=== PATIENT | female | born 1955 | race American Indian/Alaskan Native ===

== ENCOUNTER 2021-05-18 14:27 | Emergency (ER) | payer MEDICARE ==
[2021-05-18] MEDS ORDERED: dexAMETHasone 4 MG/ML VIAL IM STA (16:58)
--- NOTE | 2021-05-18 17:09 | Emergency Department Report ---
ED General Adult HPI - General Chief complaint: Extremity Injury, Lower Stated complaint: HIP PAIN SHOULDER PAIN Time Seen by Provider: 05/18/21 16:07 Source: patient Mode of arrival: Ambulatory Limitations: No Limitations - History of Present Illness Initial comments: 65-year-old -[place] female patient presents with complaints of right leg pain and right shoulder pain x3 to 4 days. Patient states history of recurrent right leg pain that occurs when her back is spasming. She denies any swelling to her leg, numbness/tingling/weakness in her leg, injuries, heavy lifting, loss of bladder/bowel control, or difficulty with ambulation. She rates her current pain is 8/10 in severity overall and states Tylenol is not helping. She reports that the right shoulder pain is chronic and denies any new or worsening symptoms. She states the pain has been ongoing since a job she had years ago where she did a lot of over head heavy lifting. No chest pain or shortness of breath per patient. She also denies any recent long travel, history of DVT/PE, or hormone use. No past medical history per patient. - Related Data Previous Rx's Medication Instructions Recorded Last Taken Type Naproxen [Naprosyn] 500 mg PO BID PRN #20 tablet 05/18/21 Unknown Rx methocarbamoL [Methocarbamol] 500 mg PO TID PRN #20 tablet 05/18/21 Unknown Rx Allergies Allergy/AdvReac Type Severity Reaction Status Date / Time aspirin Allergy Nausea Verified 05/18/21 14:32 ED Review of Systems ROS: Stated complaint: HIP PAIN SHOULDER PAIN Other details as noted in HPI Constitutional: denies: diaphoresis, fever, malaise, weakness Genitourinary: denies: urgency, dysuria, frequency, hematuria Musculoskeletal: back pain, arthralgia. denies: joint swelling Neurological: denies: numbness, paresthesias ED Past Medical Hx - Past Medical History Previous Medical History?: No - Surgical History Past Surgical History?: Yes Additional Surgical History: gastric bypass - Social History Smoking Status: Never Smoker Substance Use Type: None - Medications Home Medications: Home Medications Medication Instructions Recorded Confirmed Last Taken Type Naproxen [Naprosyn] 500 mg PO BID PRN #20 tablet 05/18/21 Unknown Rx methocarbamoL [Methocarbamol] 500 mg PO TID PRN #20 tablet 05/18/21 Unknown Rx ED Physical Exam - General Limitations: No Limitations General appearance: alert, in no apparent distress - Head Head exam: Present: atraumatic, normocephalic - Eye Eye exam: Present: normal appearance - Neck Neck exam: Present: normal inspection, full ROM - Respiratory Respiratory exam: Present: normal lung sounds bilaterally. Absent: respiratory distress - Cardiovascular Cardiovascular Exam: Present: regular rate - Expanded Upper Extremity Exam Right Shoulder Exam: Absent: full ROM (Abduction is somewhat limited), tenderness, swelling, deformity - Back Exam Back exam: Absent: other (No tenderness or swelling noted to the right lower extremity) - Expanded Back Exam Expanded Back exam: Absent: saddle anesthesia Back exam: Sciatic Notch Tenderness: Right, Positive Straight Leg Raise: Right - Neurological Exam Neurological exam: Present: alert, oriented X3. Absent: motor sensory deficit - Psychiatric Psychiatric exam: Present: normal affect, normal mood - Skin Skin exam: Present: warm, dry, intact, normal color. Absent: rash ED Medical Decision Making - Medical Decision Making 65-year-old -[place] female patient presents with complaints of right leg pain and right shoulder pain x3 to 4 days. Patient states history of recurrent right leg pain that occurs when her back is spasming. She denies any swelling to her leg, numbness/tingling/weakness in her leg, injuries, heavy lifting, loss of bladder/bowel control, or difficulty with ambulation. She rates her current pain is 8/10 in severity overall and states Tylenol is not helping. She reports that the right shoulder pain is chronic and denies any new or worsening symptoms. She states the pain has been ongoing since a job she had years ago where she did a lot of over head heavy lifting. No chest pain or shortness of breath per patient. She also denies any recent long travel, history of DVT/PE, or hormone use. No past medical history per patient. Back exam is consistent with sciatica. Will treat conservatively with NSAIDs, icing, and stretching. Recommend patient follows up with orthopedics concerning her recurrent back pain and chronic right shoulder pain for further evaluation. She is well-appearing, her vitals are normal, and she is stable for discharge home. Strict return precautions were discussed in detail with patient who verbalizes understanding. Critical care attestation.: If time is entered above; I have spent that time in minutes in the direct care of this critically ill patient, excluding procedure time. ED Disposition Clinical Impression: Low back pain with sciatica Qualifiers: Back pain laterality: right Sciatica laterality: sciatica of right side Disposition: HOME / SELF CARE / HOMELESS Is pt being admited?: No Condition: Stable Instructions: Sciatica, Shoulder Pain Prescriptions: methocarbamoL [Methocarbamol] 500 mg PO TID PRN #20 tablet PRN Reason: muscle spasm/tightness Naproxen [Naprosyn] 500 mg PO BID PRN #20 tablet PRN Reason: pain Referrals: [facility] [Provider Group] - 3-5 Days
[2021-05-18 17:40] VITALS: BP 117/80
== END 2021-05-18 17:53 | disposition home or self-care (01) ==
LOC: ED 14:27
DX: M54.40 Lumbago with sciatica, unspecified side (principal)
CPT/HCPCS: 96372; 99282; J1100